=== PATIENT | male | born 1965 | race Caucasian/White ===

== ENCOUNTER 2017-05-01 17:41 | Inpatient (IN) ==
[2017-05-01] MEDS ORDERED: NICODERM PATCH TD ONE (19:20)
[2017-05-01 20:32] LABS: MANUAL DIFF NEEDED? NO
[2017-05-01 20:48] LABS: BASO% 0.6 % (0.0-0.8); EOS# 0.53 X1000 (0.0-0.7); EOS% 4.2 % (0.0-10.0); HEMATOCRIT 47.9 % (42.0-52.0); HEMOGLOBIN 16.7 g/dL (14.0-18.0); IMM GRAN# 0.05 X1000 (0.0-0.04); IMM GRAN% 0.4 % (0.0-0.5); LYMPH# 2.83 X1000 (1.2-3.4); LYMPH% 22.3 % (20.5-51.1); MCH 31.8 PG (27-31); MCHC 34.9 g/dL (33-37); MCV 91.2 FL (81-99); MONO# 1.02 X1000 (0.11-0.59); MPV 10.4 FL (7.4-10.4); NEUT% 64.5 % (42.2-75.2); PLT 182 X1000 (130-400); RBC 5.25 XMIL (4.7-6.1)
[2017-05-01 20:54] LABS: URINE MICRO REVIEW NEEDED? NO; URINE SOURCE CLEAN CATCH
[2017-05-01 20:59] LABS: BILIRUBIN URINE NEGATIVE (NEGATIVE); BLOOD URINE NEGATIVE (NEGATIVE); COLOR YELLOW; GLUCOSE URINE >1000 mg/dL (NEGATIVE); LEUKOCYTES URINE SMALL (NEGATIVE); NITRITE URINE NEGATIVE (NEGATIVE); PROTEIN URINE TRACE mg/dL (NEGATIVE); SP GRAVITY URINE 1.031; TURBIDITY URINE CLEAR (CLEAR); UROBILINOGEN URINE NORMAL (NORMAL)
[2017-05-01 21:00] LABS: UR EPITHELIAL CELLS <10 /HPF (<10); URINE BACTERIA 1+ /HPF; URINE CULTURE NEEDED? YES; URINE RBC <10 /HPF (<10)
[2017-05-01 21:27] LABS: AGAP 13; ALBUMIN 4.1 g/dL (3.5-5.0); ALKALINE PHOSPHATASE 116 U/L (32-122); BUN 10 mg/dL (8-22); CALCIUM 9.9 mg/dL (8.8-10.2); CHLORIDE 91 mmol/L (98-107); COSMO 285; GOT 16 U/L (10-34); GPT 20 U/L (10-44); POTASSIUM 4.4 mmol/L (3.5-5.1); SODIUM 133 mmol/L (136-145); TCO2 29 mmol/L (25-35); TOTAL BILIRUBIN 0.56 mg/dL (0.20-1.00); TOTAL PROTEIN 7.7 g/dL (6.3-8.3)
[2017-05-01] MEDS ORDERED: VANCOMYCIN 1 GM/NS 1 GM/250 ML IVPB IV ONE (21:30)
[2017-05-01] MEDS ORDERED: NS 1,000 ML IV ONE (21:30)
[2017-05-01] MEDS ORDERED: HUMULIN R SUBQ ONE (21:31)
[2017-05-01] MEDS ORDERED: ZOFRAN IV ONE (22:09)
[2017-05-01] MEDS ORDERED: DILAUDID IV ONE (22:09)
[2017-05-01 22:51] LABS: INR 0.98; PROTIME 10.3 Seconds (9.2-11.7); PTT 26.4 Seconds (22.0-36.0)
[2017-05-01] MEDS ORDERED: BACITRACIN OINTMENT TOP PRN (23:02)
--- NOTE | 2017-05-01 23:28 | PROVIDER DOCUMENTATION ---
This chart was entered by Katlin Silveira Scribe, acting as scribe for Alexandro Bautista CRNP. HPI-Musculoskeletal Pain/Inj - GENERAL Chief Complaint: Extremity Pain Stated Complaint: POSS DVT/YEAST INFECTION Time Seen by Provider: 05/01/17 18:38 Source: patient - HX OF PRESENT ILLNESS-MUSKULOSKELTAL Nature of Presenting Problem: 51 year old M presents to the ED with a cc of left lower extremity pain and swelling with an onset of 3 days ago. Pt has a history of DVTs and is on Cumadin. Quality of Pain: reports: aching Severity in ED: mild Onset/Duration: 3 days ago Timing: still present Any recent injury?: No Locality of Occurance: Home Review of Systems - Adult - REVIEW OF SYSTEMS - ADULT Constitutional: denies: chills, fever Eyes: reports: no symptoms reported Ears, Nose, Mouth & Throat: reports: no symptoms reported Cardiovascular: reports: edema. denies: chest pain, palpitations Respiratory: denies: cough, shortness of breath Gastrointestinal: denies: nausea, vomiting Genitourinary: reports: no symptoms reported Musculoskeletal: reports: muscle aches. denies: muscle weakness Integumentary: reports: skin sores/ulcer. denies: skin thickening Neurological: reports: no symptoms reported Psychiatric: reports: no symptoms reported Endocrine: reports: no symptoms reported Hematologic/Lymphatic: reports: no symptoms reported Allergic/Immunologic: reports: no symptoms reported All Other Systems: Reviewed and Negative Past History - Adult - PAST MEDICAL HISTORY-ADULT Review of Records: reports: Nursing Assessment Review, Medications Reviewed Cardiovascular: reports: blood clots, HTN Neurological: reports: CVA - PRIOR SURGERIES/PROCEDURES Surgical/Procedure History: reports: none - IMMUNIZATION STATUS Childhood Immunizations: See Nurse Assessment Flu Vaccine: See Nurse Assessment - SOCIAL HISTORY Smoking: cigarettes Provider spent 3-5 mins advising pt. on dangers of tobacco.: Discussed manners to quit use, and f/u contacts for add'l counseling. Substance Use: none/never Alcohol Use Frequency: sober (former use) Physical Exam-Injury Related - Physical Exam-Injury Related Initial Vital Signs Reviewed: Yes General Appearance: appears well, alert, no apparent distress Respiratory: chest non-tender, lungs clear, normal breath sounds Cardiovascular: normal peripheral pulses, regular rate, rhythm, no edema Abdominal Exam: non tender, soft Extremity: swelling (left lower leg), tenderness (left lower extremity) Integumentary: other (mid otoole down bilateral erythema with left leg drainging yellow drainage) Psych/Mental Status: normal mood/affect, normal thought content, normal thought process, oriented x 3 Progress - PLAN OF CARE/RESULTS Progress/Plan/Lab Results: Vital Signs - 8 hr 05/01/17 17:55 05/01/17 22:32 Temperature 98.6 F Pulse Rate 83 79 Respiratory Rate 20 18 Blood Pressure 148/97 151/102 O2 Sat by Pulse Oximetry 99 95 05/01/17 22:00 Gram Stain - Final Leg - Left Laboratory Results - last 24 hr 05/01/17 05/01/17 05/01/17 19:05 20:15 20:15 WBC 12.69 H RBC 5.25 Hgb 16.7 Hct 47.9 MCV 91.2 MCH 31.8 H MCHC 34.9 RDW Std Deviation 13.7 Plt Count 182 MPV 10.4 Immature Gran % (Auto) 0.4 Neut % (Auto) 64.5 Lymph % (Auto) 22.3 [place] % (Auto) 8.0 Eos % (Auto) 4.2 Baso % (Auto) 0.6 Immature Gran # (Auto) 0.05 H Neut # (Auto) 8.19 H Lymph # (Auto) 2.83 [place] # (Auto) 1.02 H Eos # (Auto) 0.53 Baso # (Auto) 0.07 PT INR PTT (Actin FS) D-Dimer 7.06 H Sodium 133 L Potassium 4.4 Chloride 91 L Carbon Dioxide 29 Anion Gap 13 BUN 10 Creatinine 0.9 Estimated GFR/1.73 m2 > 60 BUN/Creatinine Ratio 11 Glucose 449 H* Calculated Osmolality 285 Calcium 9.9 Total Bilirubin 0.56 AST 16 ALT 20 Alkaline Phosphatase 116 Total Protein 7.7 Albumin 4.1 Globulin 3.6 Albumin/Globulin Ratio 1.1 Plasma Lactate Urine Source Urine Color Urine Turbidity Urine pH Ur Specific [place] Urine Protein Ur Glucose (Stick) Ur Ketones (Stick) Urine Blood Urine Nitrite Urine Bilirubin Urobilinogen Dipstick Urine Leukocytes Urine WBC (Auto) Urine RBC (Auto) U Epithel Cells (Auto) Urine Bacteria (Auto) 05/01/17 05/01/17 05/01/17 20:15 20:15 20:24 WBC RBC Hgb Hct MCV MCH MCHC RDW Std Deviation Plt Count MPV Immature Gran % (Auto) Neut % (Auto) Lymph % (Auto) [place] % (Auto) Eos % (Auto) Baso % (Auto) Immature Gran # (Auto) Neut # (Auto) Lymph # (Auto) [place] # (Auto) Eos # (Auto) Baso # (Auto) PT 10.3 INR 0.98 PTT (Actin FS) 26.4 D-Dimer Sodium Potassium Chloride Carbon Dioxide Anion Gap BUN Creatinine Estimated GFR/1.73 m2 BUN/Creatinine Ratio Glucose Calculated Osmolality Calcium Total Bilirubin AST ALT Alkaline Phosphatase Total Protein Albumin Globulin Albumin/Globulin Ratio Plasma Lactate 3.0 H Urine Source CLEAN CATCH Urine Color YELLOW Urine Turbidity CLEAR Urine pH 5.0 Ur Specific [place] 1.031 Urine Protein TRACE A Ur Glucose (Stick) >1000 A Ur Ketones (Stick) NEGATIVE Urine Blood NEGATIVE Urine Nitrite NEGATIVE Urine Bilirubin NEGATIVE Urobilinogen Dipstick NORMAL Urine Leukocytes SMALL A Urine WBC (Auto) 10-20 A Urine RBC (Auto) <10 U Epithel Cells (Auto) <10 Urine Bacteria (Auto) 1+ Orders Category Date Time Status ANTI-THROMBIN III ACTIVITY [HH] Stat Lab 05/01/17 23:00 Uncollected BLOOD CULTURE [BLDCUL] Stat Lab 05/01/17 20:15 Results CBC WITH ELECTRONIC DIFF [HEME] Stat Lab 05/01/17 20:15 Completed CMP [COMPREHENSIVE METABOLIC PANEL] [CHEM] Stat Lab 05/01/17 20:15 Completed Ddimer [D-DIMER] [CHEM] Stat Lab 05/01/17 19:05 Completed FACTOR V [id number] LEIDEN [[place]] Stat Lab 05/01/17 23:00 Uncollected LACTATE, PLASMA [CHEM] Stat Lab 05/01/17 20:15 Completed PROTIME WITH INR [COAG] Stat Lab 05/01/17 20:15 Completed PT [id number] GENE MUTATION [[place]] Stat Lab 05/01/17 23:00 Uncollected PTT [COAG] Stat Lab 05/01/17 20:15 Completed URINALYSIS W/POSS RFLX CULT-1 [URINALYSIS] Stat Lab 05/01/17 20:24 Completed URINE CULTURE [RM] Routine Lab 05/01/17 21:14 Received WOUND CULTURE INC GRAM STAIN [RM] Routine Lab 05/01/17 22:00 Results 0.9% Sodium Chloride Inj [Ns] 1,000 ml Med 05/01/17 21:30 Discontinued IV 999 mls/hr Amlodipine [Norvasc] Med 05/02/17 09:00 Active 10 mg PO DAILY Bacitracin Ointment Med 05/01/17 23:02 Active 1 gm TOP PRN PRN Enoxaparin [Lovenox] Med 05/01/17 23:15 Active 150 mg SUBQ Q12H Hydrochlorothiazide Med 05/02/17 09:00 Active 25 mg PO DAILY Hydromorphone [Dilaudid] Med 05/01/17 22:09 Discontinued 1 mg IV NOW ONE Insulin Human Regular [Humulin R] Med 05/01/17 21:31 Discontinued 20 unit SUBQ NOW ONE Nicotine Patch [Nicoderm Patch] Med 05/01/17 19:20 Discontinued 21 mg TD NOW ONE Ondansetron [Zofran] Med 05/01/17 22:09 Discontinued 4 mg IV NOW ONE Valsartan [Diovan] Med 05/02/17 09:00 Active 320 mg PO DAILY Vancomycin 1 gm/Ns Med 05/01/17 21:30 Discontinued 1 gm in 250 ml IV NOW Venous U/S Left Leg Stat Ther 05/01/17 20:03 Completed Transfer/Admit Order [TRANSFER] Routine Transfer 05/01/17 23:04 Ordered Result Diagrams: 05/01/17 20:15 05/01/17 20:15 - ULTRASOUND (By Radiology) 1 US Study: Lower Ext Impression: See EMR Report (According to vascular extensive DVT to LLE.) - CONSULTS/PCP/HOSPITALIST Notification #1 *Consult/PCP/Hospitalist*: [place] Time Discussed: 22:30 Consult Disposition: Will see in ED, Admit Departure - Departure Date of Disposition Decision: 05/01/17 Time of Disposition Decision: 23:27 DIAGNOSIS: Uncontrolled diabetes mellitus, DVT (deep venous thrombosis), Cellulitis Disposition: HOME 01 Certified Medical Emergency: Emergent Condition: Stable - Critical Care Note This patient required my direct & personal management of CC.: No Attestation - Physician/ ARTHUR Attestation Patient care was provided by Advanced Practice Provider:: Yes Advanced Practice Provider:: Alexandro Bautista (Dr. Leonard agrees with plan and decision to admit.) Advanced Practice Provider documentation review:: The Mid-level provider documentation, treatment plan and medical decision making was reviewed by the physician who agrees with all treatment and medical decision making by the MLP. This chart was documented by the indicated scribe, (Katlin Silveira Scribe) and accurately reflects the services I performed and decisions made by , Alexandro Bautista CRNP, as attested by the provider's signature.
[2017-05-01] MEDS: LOVENOX SUBQ SCH (23:57)
[2017-05-02] MEDS ORDERED: HUMULIN 70/30 SUBQ ONE (00:31)
[2017-05-02] MEDS ORDERED: ZOFRAN IV PRN (00:31)
[2017-05-02 01:00] LABS: HDL 30 mg/dL (35-55); LDL 95 mg/dL; TRIGLYCERIDES 388 mg/dL (39-160); VLDL 78 mg/dL
[2017-05-02 01:37] LABS: HEMOGLOBIN A1C 9.6 % (4.8-6.0)
[2017-05-02] MEDS: MYCOSTATIN POWDER TOP SCH ×3 (01:41→20:59)
[2017-05-02] MEDS: NS 1,000 ML IV SCH ×3 (01:44→16:46)
[2017-05-02] MEDS: ZOSYN 3.375 GM/NS 3.375 GM/50 ML IVPB IV SCH ×4 (01:45→20:50)
--- NOTE | 2017-05-02 04:33 | HISTORY AND PHYSICAL ---
PRIMARY CARE PROVIDER: Dr. Gaines in [place] at [facility] , on the [place] side. CHIEF COMPLAINT: Left lower extremity swelling and pain. HISTORY OF PRESENT ILLNESS: Mr. Mansfield is of very pleasant but morbidly obese and noncompliant 51-year-old male. He is joined by his who works at [employer]. He comes in tonight, as noted above, for left lower extremity swelling and pain. He has had multiple DVTs in the past as well as diabetes mellitus. He was originally changed from oral antihyperglycemics to insulin; however, he decided to take himself off of it. He had a CVA and originally had a right- sided hemiparesis. Now, he just has mild right-sided weakness. Also has hypertension, questionable hyperlipidemia; however, he is not on a statin. The patient has been taking Coumadin at home 4 mg daily for chronic DVT. He states he has been very compliant with it; however, he has not had his INR checked in quite some time. In the emergency room, his INR was checked and found to be 0.98, so he was not therapeutic. A D-dimer was 7.06. The patient was found to have a DVT in his left lower extremity. He will be admitted to the medical floor for further evaluation and treatment. PAST MEDICAL HISTORY: 1. DVTs. 2. CVA with right-sided hemiparesis. Now, resolved to right-sided weakness. 3. Hypertension. 4. Diabetes mellitus type 2. Should be insulin-dependent, however, he took himself off of insulin. 5. Morbid obesity. 6. Questionable CHRISSY disease. 7. Questionable iron disorder and questionable hemochromatosis. 8. Bilateral lower extremity venous stasis ulcers and dermatitis. 9. Frequent tinea cruris in his [place] area. SURGICAL HISTORY: Oral surgery, just having his wisdom teeth removed. Otherwise, denies surgical history. FAMILY HISTORY: Father had myocardial infarction x4, hypertension. Mother, I believe, had a congenital predisposition for iron deposit disease. Maternal grandparents had CVA. SOCIAL HISTORY: , lives at home with his . He is disabled. Smokes around a pack a day of cigarettes, has for 36 years. Drinks alcohol occasionally. Stating that he likes to have a rum and Coke on his and his 's birthday. ALLERGIES: No known drug allergies. HOME MEDICATIONS: 1. Warfarin 4 mg p.o. daily. 2. Tramadol 100 mg p.o. p.r.n. 3. Bacitracin 1 g topically p.r.n. 4. Glipizide 10 mg p.o. b.i.d. 5. Metformin 1000 mg p.o. b.i.d. 6. Valsartan 320 mg p.o. daily. 7. Amlodipine 10 mg p.o. daily. 8. Hydrochlorothiazide 25 mg p.o. daily. REVIEW OF SYSTEMS: Fourteen point review of systems conducted with the patient. Pertinent positives listed above in the HPI. All other systems reviewed and found to be negative. PHYSICAL EXAMINATION: VITAL SIGNS: Temperature 98.6 degrees, pulse 79, respirations 18, blood pressure 151/102, oxygen saturation 95% to 99% on room air. GENERAL: Very pleasant, 51-year-old male lying in the ER stretcher. Noted to be morbidly obese. Has a BMI of 43.3, in no acute distress. HEENT: Head is atraumatic, normocephalic. Pupils equal, round, reactive to light. Extraocular eye movement is intact. Sclerae is anicteric. Oral mucosa is dry. Poor dentition noted. NECK: Short and thick. JVD could not be assessed very well. No hepatojugular reflex noted. Trachea is midline. CARDIAC: S1-S2 appreciated. Regular rhythm. No murmurs, gallops, rubs. Heart tones noted to be distant, however this could be related to poor body habitus. LUNGS: Clear to auscultation bilaterally. Symmetrical rise and fall of respirations. No rhonchi, wheezes, rales. ABDOMEN: Protuberant. Soft, nondistended, nontender. Bowel sounds present in all 4 quadrants. Normoactive. No pulsatile mass. No organomegaly. EXTREMITIES: Discoloration noted to bilateral lower extremities from below the patella down. Erythema and scaling noted. Left lower extremity has much more nonpitting edema than the right lower extremity. Both extremities were warm to touch with the color change noted from chronic venous stasis. The left lower extremity has a 5 x 5 cm venous stasis ulcer that is draining serosanguineous drainage that is noted to be crusting all around the area. It does smell somewhat malodorous and is suspicious for infection. Pedal pulses are bilaterally diminished. Right foot has 2+ pitting edema. Left foot has 3+ pitting edema. Both were mildly cool to touch. NEUROLOGICAL: Cranial nerves 2-12 grossly intact. Alert and oriented x3. MUSCULOSKELETAL: Right upper extremity 3/5 strength related to old CVA. Left upper extremity 5/5 strength. Bilateral lower extremities 3/5 strength with decreased range of motion in the lower extremities. LABORATORY DATA: WBC 12.69, hemoglobin 16.7, hematocrit 47.9, platelet count 182,000. PT 10.3, INR 0.98, PTT 26.4, PT 7.06, sodium 133, potassium 4.4, chloride 91, carbon dioxide 29, BUN 10, creatinine 0.9, glucose 449, plasma lactate 3, urine greater than 1000, glucose , small amount of leukocytes, 10-20 WBCs, 1+ bacteria. ASSESSMENT/PLAN: 1. Left lower extremity deep vein thrombosis. This appears to be a chronic problem with the patient. Despite thinking he was compliant with his Coumadin, his INR was found to be 0.98. We will start him on Lovenox 150 mg subcutaneously b.i.d. We will consult Disbursing Officer for possible transition over to Xarelto when he leaves, as he was not very compliant with his Coumadin. 2. Uncontrolled diabetes mellitus type 2. As noted above, patient was started on insulin, however, at some point, he decided to take himself off of it. At this time related to him being on a limited income, we will start him on 70/30 insulin. He was calculated out to need around 60 units to start per day. We will give 40 mg every a.m. and 20 mg at bedtime, also cover with insulin lispro before meals and at bedtime, moderate dosing. 3. Diabetic venous stasis ulcers. The left lower extremity is suspicious for infection. Blood cultures have been ordered. We will give Zosyn 3.375 IV q.6 hours. He did receive a vancomycin dose in the emergency room. We will not continue this at this time. Also, Wound Care will be consulted for debridement and help with treatment of the ulcers. 4. Hypertension. Continue valsartan and Norvasc. 5. Questionable hyperlipidemia. We will check a lipid profile. Consider statin if indicated. 6. Questionable disease that predisposes this patient to blood clotting. He is unsure which gene mutation he has. We will order factor V Leiden, antithrombin III, prothrombin G202. 7. Tobacco abuse. The patient smokes around a pack a day. We will start on a NicoDerm patch 21 mg transdermally daily. 8. Fluid volume depletion. The patient did appear clinically to be fluid volume depleted, as well as, mildly hyponatremia. We will start normal saline at 125 mL an hour. 9. Questionable urinary tract infection. The patient will be started on Zosyn, which will cover most likely causes of its urinary tract infection. 10. Further recommendations per patient clinical course. Dictated by ABUNDIO Espinosa for Alissa Lewis MD Seen and examinec pt with DISTRICT COURT REPORTER and discussed plan of care cc: ABUNDIO Espinosa MD Dr. Lindsay MTDD
[2017-05-02] MEDS: DILAUDID IV PRN ×3 (05:57→20:51)
[2017-05-02] MEDS: HUMALOG SUBQ SCH ×4 (06:00→20:53)
[2017-05-02 06:28] LABS: MANUAL DIFF NEEDED? NO
[2017-05-02 06:44] LABS: BASO% 0.5 % (0.0-0.8); EOS# 0.61 X1000 (0.0-0.7); EOS% 5.1 % (0.0-10.0); HEMATOCRIT 47.6 % (42.0-52.0); LYMPH# 3.13 X1000 (1.2-3.4); LYMPH% 26.1 % (20.5-51.1); MCH 31.9 PG (27-31); MCHC 33.6 g/dL (33-37); MCV 94.8 FL (81-99); MONO# 1.23 X1000 (0.11-0.59); MONO% 10.3 % (1.7-9.3); MPV 10.4 FL (7.4-10.4); PLT 139 X1000 (130-400); RBC 5.02 XMIL (4.7-6.1)
[2017-05-02 07:17] LABS: AGAP 14; BUN 8 mg/dL (8-22); CALCIUM 8.6 mg/dL (8.8-10.2); CHLORIDE 98 mmol/L (98-107); COSMO 278; POTASSIUM 3.3 mmol/L (3.5-5.1); SODIUM 138 mmol/L (136-145); TCO2 26 mmol/L (25-35)
[2017-05-02] MEDS: HYDROCHLOROTHIAZIDE PO SCH (08:03)
[2017-05-02] MEDS: NORVASC PO SCH (08:03)
[2017-05-02] MEDS: HUMULIN 70/30 SUBQ SCH (08:03)
[2017-05-02] MEDS: DIOVAN PO SCH (08:03)
[2017-05-02] MEDS: NICODERM PATCH TD SCH (08:04)
[2017-05-02] MEDS: LOVENOX SUBQ SCH ×3 (11:18→23:11)
--- NOTE | 2017-05-02 15:00 | PROGRESS NOTE ---
DATE: 05/02/2017 SUBJECTIVE: The patient is feeling well. Still complaining of having pain on his left lower extremity. No fever. No chills. No nausea, vomiting, or diarrhea. OBJECTIVE: Vital Signs: Blood pressure 147/81, pulse of 74, respiration 18, temperature 98.4 degrees, saturation of 96% on room air. General Appearance: Morbidly obese, white male, in no acute distress. HEENT: Anicteric sclerae, clear conjunctivae. Neck: Supple. No JVD. No bruit. Cardiovascular: S1, S2. Normal rate and rhythm. No murmur, rubs, or gallops. Pulmonary: Clear to auscultation bilaterally. GI: Soft, nontender, nondistended. Normoactive bowel sounds. Musculoskeletal: His left calf is larger than the right. Significant venous stasis and edema. LABORATORY: White count 4, hemoglobin 16, hematocrit of 47.6, platelets 139,000. Chemistry: Sodium 138, potassium 3.3, chloride 98, bicarb 26, BUN 8, creatinine 0.8, glucose of 166. ASSESSMENT AND PLAN: This is a 51-year-old, white male, admitted to the hospital for lower extremity pain. 1. Lower extremity pain. The patient noted to have deep venous thrombosis and is supposed to be on Coumadin. His international normalized ratio was subtherapeutic when he came in. He is currently on 40 of Lovenox. We will try to transition him to a new oral anticoagulation because he is not very compliant with his Coumadin. 2. Cellulitis of the lower extremity. Keep the patient on vancomycin. We stopped clindamycin. Culture grew out gram-positive on the wound. We will discontinue his vancomycin, keep him on Zosyn for now. 3. Hypertension. Continue Norvasc and Diovan. 4. Diabetes. We will continue her 70/30 insulin and sliding scale. 5. We will cut down his IV fluid. 6. Morbid obesity status quo. 7. Code Status: The patient is a full code. 8. Deep vein thrombosis prophylaxis. The patient is on full dose of Lovenox.
[2017-05-02] MEDS ORDERED: HUMULIN 70/30 SUBQ SCH (21:00)
[2017-05-03] MEDS: DILAUDID IV PRN ×2 (01:32→08:09)
[2017-05-03] MEDS: ZOSYN 3.375 GM/NS 3.375 GM/50 ML IVPB IV SCH ×2 (01:33→08:09)
[2017-05-03] MEDS: NS 1,000 ML IV SCH (05:52)
[2017-05-03] MEDS: HUMALOG SUBQ SCH ×3 (06:26→16:39)
[2017-05-03] MEDS ORDERED: INSULIN PEN NEEDLES ONE (06:40)
[2017-05-03] MEDS: NORVASC PO SCH (08:10)
[2017-05-03] MEDS: NICODERM PATCH TD SCH (08:10)
[2017-05-03] MEDS: DIOVAN PO SCH (08:10)
[2017-05-03] MEDS: HYDROCHLOROTHIAZIDE PO SCH (08:10)
[2017-05-03] MEDS: HUMULIN 70/30 SUBQ SCH (08:11)
[2017-05-03] MEDS: MYCOSTATIN POWDER TOP SCH (08:12)
[2017-05-03] MEDS ORDERED: KLOR-CON PO ONE (08:40)
[2017-05-03] MEDS: LOVENOX SUBQ SCH (11:49)
[2017-05-03] MEDS ORDERED: XARELTO PO SCH (13:00)
[2017-05-03] MEDS ORDERED: LEVAQUIN PO SCH (13:15)
[2017-05-03 15:05] VITALS: BP 138/71
--- NOTE | 2017-05-03 15:43 | DISCHARGE SUMMARY ---
ADMISSION DATE: 05/02/2017 DISCHARGE DATE: 05/03/2017 CONSULTATIONS: None. PERTINENT PROCEDURES: None. DISCHARGE DIAGNOSES: 1. Lower extremity pain of the left lower extremity. 2. Deep venous thrombosis which is a chronic problem with the patient. The patient's INR was subtherapeutic. He was started on Lovenox bridge well as a Social Service consult [facility] The patient has being given a coupon and it will be $ 10.00 per month. 3. Uncontrolled diabetes mellitus, type 2. Continue home medications. 4. Cellulitis of the left lower extremity. The patient was kept on vancomycin. His clindamycin was stopped. His cultures grew out Gram positive and started on Zosyn and will be discharged on Levaquin p.o. as well as Bacitracin appointment. 5. Hypertension. Continue Norvasc and . 6. Morbid obesity. Patient was given daily education on diet and exercise. HOSPITAL COURSE: Mr. Mansfield is a 51-year-old male who carries a past medical history of morbid obesity, noncompliance, DVT, CVA with right-sided hemiparesis, now resolved to right-sided weakness. Hypertension, diabetes mellitus type 2 insulin dependent, but he took himself off the medication. The patient came to the ED for left lower extremity swelling and pain. He has had multiple DVTs in the past. He originally changed from oral anti-hypoglycemics to insulin; however, he decided to take himself off it. The patient had been taking Coumadin at home 4 mg daily for chronic DVT. He states he has been very compliant with that, however , he has not had his INR checked in quite some time. In the ED, his INR was found to be 0.98, so he was not therapeutic. D-dimer was 7.06. The patient was found to have a DVT in his left lower extremity. He was admitted to the medical floor, continued on Coumadin as well as a Lovenox bridge. Chemical Supervisor was consulted to transition the patient to Xarelto. They have gotten him coupons for $10.00 per month throughout his duration. He has been placed on 70/30 insulin. He did have some cellulitis in his lower extremity. He was placed on vancomycin as well as clindamycin. Those were stopped and added Zosyn for gram positive on the wound. He will be discharged home on p.o. Levaquin. The patient is stable for discharge today. Temperature is 98.3 degrees, heart rate 71, respirations 20, blood pressure is 142/82, O2 is 95% on room air. DISCHARGE DIET: Diabetic. DISCHARGE MEDICATIONS: As per Dr. Acosta. 1. Norvasc 10 mg p.o. daily. 2. Bacitracin ointment 1 g topical p.r.n. 3. Hydrochlorothiazide 25 mg p.o. daily. 4. Humalog 70/30, 30 units subcutaneously b.i.d. 5. Levaquin 750 mg p.o. daily. 6. Glucophage 1000 mg p.o. b.i.d. 7. Xarelto 15 mg p.o. b.i.d. then Xarelto 20 mg p.o. daily. 8. Ultram 100 mg p.o. p.r.n. 9. Valsartan 320 mg p.o. daily. FOLLOWUP: The patient is being discharged home with his . He will need to follow up with his PCP. The patient can return to the ED for any worsening of symptoms. He has been educated on the importance of medication compliance. He is being swapped to Xarelto, but he will need to take his medications daily as prescribed. Dictated by ABUNDIO Enrique for Taras Acosta MD Addendum: I personally evaluated and examined the patient in conjunction to the PROJECTS MANAGER and agreed with her disposition. See my PN for exam MTDD
--- NOTE | 2017-05-03 20:08 | Extremity Venous Study ---
PROCEDURE NAME: Venous U/S Left Leg - 05/01/2017 TEST: Left lower extremity venous duplex study. REFERRING PHYSICIAN: ABUNDIO Dietrich READING PHYSICIAN: Andriy Bauman MD QUALITY ASSURANCE ASSOCIATE: Pauline. INDICATION: Leg pain, swelling and a history of DVT. FINDINGS: Occlusive thrombus is found in the left common femoral, superficial femoral, popliteal, posterior tibial, peroneal, gastrocnemius and soleal veins. There is no flow throughout these veins. There is subcutaneous edema in the left calf. The greater saphenous vein is patent and compressible. INTERPRETATION: Extensive occlusive acute deep vein thrombosis of the left lower extremity as described above. There is no superficial venous thrombosis. cc: Andriy Bauman MD
== END 2017-05-03 18:23 | disposition home or self-care (01) ==
LOC: ED 17:41 → SUATTDRO 05-02 00:03 → 4N 05-02 00:03
PROVIDERS: ADMIT Internal Medicine; ATTEND Internal Medicine